=== PATIENT | male | born 1990 | race Caucasian/White ===

== ENCOUNTER 2024-01-26 20:14 | Emergency (ER) | payer OTHER ==
[~2024-01-26] VITALS: Ht 172.7 cm; Wt 73.0 kg
[2024-01-26 20:27] VITALS: O2SAT 95
[2024-01-26] MEDS: SODIUM CHLORIDE 0.9% 1,000 ML IV ONE (21:06)
[2024-01-26 22:43] LABS: BASOPHILS % 0.4 % (0.0-2.0); EOSINOPHILS % 1.1 % (0.0-5.0); HEMATOCRIT. 40.9 % (42.0-52.0); HEMOGLOBIN. 13.9 g/dL (14.0-18.0); LYMPHOCYTES % 24.4 % (20.0-50.0); MEAN CORPUSCULAR HEMOGLOBIN 30.8 pg (28.0-32.0); MEAN CORPUSCULAR VOLUME 90.5 fL (80.0-94.0); MEAN PLATELET VOLUME 7.6 fl (7.4-10.4); MONOCYTES % 12.4 % (2.0-8.0); NEUTROPHILS % 61.7 % (40.0-76.0); PLATELET 127 x1000/uL (130-400); RED BLOOD CELL COUNT 4.52 mill/uL (4.7-6.1); RED CELL DISTRIBUTION WIDTH 12.2 % (11.6-14.6)
[2024-01-26 22:54] LABS: CHLORIDE 104 mEq/L (98-107); SODIUM 137 mEq/L (136-145)
[2024-01-26 22:55] LABS: CALCIUM 8.5 mg/dL (8.7-10.4); CARBON DIOXIDE 28 mEq/L (21-32)
[2024-01-26 23:00] LABS: CREATININE 1.2 mg/dL (0.6-1.3); GLUCOSE 115 mg/dL (70-105); UREA NITROGEN BLOOD 17 mg/dL (9-23)
[2024-01-26 23:01] LABS: TROPONIN I HIGH SENSITIVITY < 4 ng/L (3.0-53)
[2024-01-27 00:04] VITALS: BP 95/52; PULSE 74; RESP 16; TEMP 36.89184; O2SAT 96
== END 2024-01-27 00:10 | disposition home or self-care (01) ==
LOC: ER 20:14
DX: R55 Syncope and collapse (principal); R53.83 Other fatigue
CPT/HCPCS: 99285; 96360; 70450; 71045; 96361; 80048; 85025; 84484; 36415; 93005; J7030